=== PATIENT | male | born 1970 | race Caucasian/White ===

== ENCOUNTER 2019-06-18 11:53 | Outpatient (CLI) | payer MEDICAID ==
--- NOTE | 2019-06-18 12:18 | RAD ---
EXAM: Chest 2 views: HISTORY: Cough for months COMPARISON: None. FINDINGS: There is a normal-sized cardiomediastinal silhouette. There is no evidence of consolidation, mass, or pleural effusion. The bones are unremarkable. IMPRESSION: No evidence of acute cardiopulmonary disease
--- NOTE | 2019-06-18 12:21 | RAD ---
EXAM: Sinus series HISTORY: Rhinosinusitis COMPARISON: None FINDINGS: No displaced calvarial fracture is seen. The visualized paranasal sinuses are well aerate d without opacification. IMPRESSION: No significant sinus abnormality.
== END 2019-06-18 11:54 | disposition home or self-care (01) ==
LOC: BICRAD 11:53
PROVIDERS: ATTEND Internal Medicine
DX: J01.90 Acute sinusitis, unspecified (principal); R05 Cough
CPT/HCPCS: 70220; 71046